=== PATIENT | female | born 1985 | race Caucasian/White ===

== ENCOUNTER 2020-02-24 16:01 | Inpatient (IN) | payer OTHER ==
[2020-02-24] VITALS (76 sets, daily range): BP systolic 140; BP diastolic 62; PULSE 84; TEMP 98.7; O2SAT 88–95
[~2020-02-24] VITALS: Ht 165.1 cm; Wt 91.4 kg
[~2020-02-24 16:01] MED LIST: ACIDOPHILUS PO; ASMANEX TW0.22 MG/A1 IH; BCP TD; CLARITIN 1010 MG/TAB PO; COLACE50 MG PO; CYMBALTA; ESTRACE2 MG PO; FLAGYL500 MG PO; INDERAL LA120 MG PO; LEXAPRO10 MG PO; LORTAB 5/500 501 TAB PO; MOTRIN 800800 MG/TAB PO; MULTI VITAMINS1 TAB PO; PERCOCET 325 MG1 TA2 PO; PRENATAL1 TA1 PO; PRILOTC PO; PROPRANOLOL HC120 M1 PO; SLOW FE45 MG PO; SYNTHROID0.112 MG/T PO; SYNTHROID0.137 MG PO; TENORMIN100 MG PO; TYLENOL 500MG500 MG PO; TYLENOL EXTRA500 M1 PO; Z-BEC1 TAB PO; ZOFRAN8 MG PO; ZOLOFT100 MG PO; ZYRTEC 10MG10 MG PO
[2020-02-24] MEDS ORDERED: LEXAPRO20 MG PO (17:07)
[2020-02-24] MEDS ORDERED: NATURAL MAGNES200 MG PO (17:08)
[2020-02-24] MEDS ORDERED: METHAVER 109 M1 EACH PO (17:08)
[2020-02-24 17:19] LABS: ALBUMIN 4.1 gm/dL (3.5-5.0); ALKALINE PHOSPHATASE 110 U/L (50-136); ANION GAP 18 mmol/L (7-16); AST,SGOT 166 U/L (15-37); BILIRUBIN,TOTAL 0.4 mg/dL (0.0-1.0); BLOOD UREA NITROGEN 19 mg/dL (7-17); CALCIUM 8.4 mg/dL (8.4-10.2); CHLORIDE 108 mmol/L (98-107); GLUCOSE 181 mg/dL (74-106); MAGNESIUM 1.7 mg/dL (1.6-2.3); POTASSIUM 3.7 mmol/L (3.4-5.0); SODIUM 140 mmol/L (137-145); TOTAL PROTEIN 7.2 gm/dL (6.4-8.2)
[2020-02-24 17:25] LABS: ALANINE AMINOTRANSFERASE 82 U/L (4-34)
[2020-02-24 17:30] LABS: CARBON DIOXIDE 13 mmol/L (22-30)
[2020-02-24 17:31] LABS: TROPONIN-I < 0.012 ng/mL (0.000-0.035)
[2020-02-24 18:37] LABS: ACETONE,SERUM NEGATIVE
[2020-02-24 18:38] LABS: SALICYLATE 1.4 mg/dL
[2020-02-24 18:53] LABS: ARTERIAL BLOOD GAS HCO3 13.8 meq/L (22-26); ARTERIAL BLOOD GAS PCO2 25.4 mmHg (35-45); ARTERIAL BLOOD GAS PO2 80.8 mmHg (80-100); ARTERIAL BLOOD GAS pH 7.35 (7.35-7.45)
[2020-02-24 18:54] LABS: ARTERIAL BLD GAS O2 SATURATION 95.8 % (92-100); ARTERIAL BLOOD GAS BASE EXCESS -10.1 (-2-2)
[2020-02-24] MEDS ORDERED: MAG-OX 400400 MG/TAB PO (19:59)
[2020-02-24] MEDS ORDERED: RIBOFLAVIN100 MG PO (20:00)
[2020-02-24] MEDS ORDERED: NEXIUM 20MG20 MG PO (20:01)
[2020-02-24] MEDS ORDERED: ALEVE 220MG220 MG PO (20:01)
[2020-02-24 20:45] LABS: PHOSPHOROUS 4.2 mg/dL (2.5-4.5)
[2020-02-24 23:04] LABS: ACETAMINOPHEN < 10 ug/mL (10-30); ALCOHOL(ethanol),MEDICAL < 10 mg/dL
[2020-02-25] VITALS (782 sets, daily range): BP systolic 119–135; BP diastolic 54–86; PULSE 66–86; TEMP 98.2–99; O2SAT 82–100
[2020-02-25 02:28] LABS: HIV 1/2 Antibodies Non-Reactive; HIV-1p24 Antigen Non-Reactive
[2020-02-25 02:50] LABS: ARTERIAL BLOOD GAS HCO3 19.3 meq/L (22-26); ARTERIAL BLOOD GAS PCO2 28.8 mmHg (35-45); ARTERIAL BLOOD GAS PO2 49.8 mmHg (80-100); ARTERIAL BLOOD GAS pH 7.44 (7.35-7.45)
[2020-02-25 02:51] LABS: ARTERIAL BLD GAS O2 SATURATION 85.6 % (92-100); ARTERIAL BLOOD GAS BASE EXCESS -3.6 (-2-2)
[2020-02-25 05:41] LABS: CALCIUM 8.4 mg/dL (8.4-10.2); CREATININE, serum 0.95 (0.52-1.25); POTASSIUM 4.4 mmol/L (3.4-5.0)
--- NOTE | 2020-02-25 05:56 | NUR ---
PLACED PATIENT ON AIRVO 50L 60% THEY WERE NOT TOLERATING HIGH FLOW NASAL CANNULA OF 12L.
--- NOTE | 2020-02-25 06:00 | NUR ---
PT arrived at 2044 on 02/23 via ER stretcher accompanied by ER nurse. PT stood and walked to unit bed. However, PT has difficulties standing and complained of some dizziness, gait was awkward and unsteady, some SOA noted. PT then attached to CRM monitor, vitals obtained. PT complained of nausea, phenegran then administered per provider order. Throughout the night, PT SpO2 sats continued to decline despite increased oxygen use. PT went from arriving on room air and is now on AirVo. RAJINDER Fernando notified whenever staff increased O2 liter flow along with notifying provider of elevated lactic acid, increased edema, lack of urine output. Orders received awknowledging these issues and RAJINDER Fernando to bedside to assess patient. POC reviewed with hospitalist and BUTCH provider. PT understanding of POC and encouraged to ask questions. PT O2 sats remain in the mid-90's.
[2020-02-25 09:01] LABS: ARTERIAL BLD GAS O2 SATURATION 94.7 % (92-100); ARTERIAL BLD GAS TCO2 CT 20.7; ARTERIAL BLOOD GAS BASE EXCESS -2.4 (-2-2); ARTERIAL BLOOD GAS HCO3 19.8 meq/L (22-26); ARTERIAL BLOOD GAS PCO2 26.7 mmHg (35-45); ARTERIAL BLOOD GAS PO2 65.9 mmHg (80-100); ARTERIAL BLOOD GAS pH 7.49 (7.35-7.45)
--- NOTE | 2020-02-25 09:31 | NUR ---
Initial visit; Patient in Isolation, Manager Of Data left message of God's blessings and prayer being said for Maritza.
[2020-02-25 10:03] LABS: BASO % 0.2 % (0.0-2.0); EOS % 0.1 % (0-4.0); GRAN # 7.9 (1.4-6.5); GRAN % 75.1 % (42.2-75.2); HEMOGLOBIN 10.5 g/dl (12.5-16.0); LYMPH # 1.5 (1.2-3.4); LYMPH % 14.1 % (20.0-51.0); MEAN CELL VOLUME 85 fl (80.0-100.0); MEAN CORPUSCULAR HEMOGLOBIN 28 pg (27.0-31.0); MEAN CORPUSCULAR HGB CONC 33 g/dl (33.0-37.0); MEAN PLATELET VOLUME 10.1 fl (7.4-10.4); MONO # 1.1 (0.1-0.6); MONO % 9.9 % (1.7-9.3); PLATELET COUNT 351 K/mm3 (130-400); RED BLOOD COUNT 3.76 M/mm3 (4.10-5.30); REDCELL DISTRIBUTION WIDTH-CV 13.6 % (11.5-14.5)
[2020-02-25 10:22] LABS: HEMATOCRIT 31.9 % (37.0-47.0)
[2020-02-25 11:37] LABS: ERYTHROCYTE SEDIMENTATION RATE 33 mm/hr (0-20)
--- NOTE | 2020-02-25 13:20 | NUR ---
The patient is Covid + and is in isolation. Ore Miner attended clinical rounds with the team by standing outside the room. The patient now has a PICC line and is to have an echocardiogram this day. The patient is currently on 50L of oxygen on Airvo. After rounds, SW contacted the patient via cell phone to complete initial intake. The patient lives in [place] with her , Romulo and their two children. The patient denies DME use and is independent. The patient's PCP is Dr. Hay and patient receives medications from [facility] in [place]. The patient does does not have advanced directives in the EMR but states they are complete and designate her and [id number]. GRIFFIN contacted the patient's , Romulo # [phone] to introduce oneself and to discuss DPOA-HC paperwork. Romulo to look for paperwork then send it to this SW. SW provided support.
[2020-02-26] VITALS (519 sets, daily range): BP systolic 103–124; BP diastolic 53–59; PULSE 88–105; TEMP 98.7–99.2; O2SAT 90–100
[2020-02-26 05:58] LABS: ARTERIAL BLD GAS O2 SATURATION 96.8 % (92-100); ARTERIAL BLD GAS TCO2 CT 23.9; ARTERIAL BLOOD GAS PCO2 31.7 mmHg (35-45); ARTERIAL BLOOD GAS pH 7.48 (7.35-7.45)
[2020-02-26 06:56] LABS: BASO % 0.2 % (0.0-2.0); GRAN # 10.2 (1.4-6.5); GRAN % 83.7 % (42.2-75.2); LYMPH # 0.9 (1.2-3.4); LYMPH % 7.1 % (20.0-51.0); MEAN CELL VOLUME 85 fl (80.0-100.0); MEAN CORPUSCULAR HGB CONC 34 g/dl (33.0-37.0); MEAN PLATELET VOLUME 10.3 fl (7.4-10.4); MONO % 8.3 % (1.7-9.3); RED BLOOD COUNT 3.43 M/mm3 (4.10-5.30); REDCELL DISTRIBUTION WIDTH-CV 13.7 % (11.5-14.5)
[2020-02-26 07:10] LABS: ALBUMIN 3.5 gm/dL (3.5-5.0); BILIRUBIN,TOTAL 0.4 mg/dL (0.0-1.0); CALCIUM 8.2 mg/dL (8.4-10.2); CREATININE, serum 0.78 (0.52-1.25); MAGNESIUM 2.1 mg/dL (1.6-2.3); PHOSPHOROUS 3.6 mg/dL (2.5-4.5); POTASSIUM 3.3 mmol/L (3.4-5.0); TOTAL PROTEIN 6.4 gm/dL (6.4-8.2)
[2020-02-26 07:11] LABS: HEMATOCRIT 29.3 % (37.0-47.0); HEMOGLOBIN 9.9 g/dl (12.5-16.0); MEAN CORPUSCULAR HEMOGLOBIN 29 pg (27.0-31.0); PLATELET COUNT 249 K/mm3 (130-400)
[2020-02-27] VITALS (393 sets, daily range): BP systolic 104–134; BP diastolic 48–72; PULSE 79–98; TEMP 97.9–98.6; O2SAT 89–100
[2020-02-27 06:52] LABS: BASO % 0.1 % (0.0-2.0); GRAN % 79.1 % (42.2-75.2); MEAN CELL VOLUME 87 fl (80.0-100.0); MEAN CORPUSCULAR HGB CONC 33 g/dl (33.0-37.0); MEAN PLATELET VOLUME 10.1 fl (7.4-10.4); MONO % 9.7 % (1.7-9.3); PLATELET COUNT 240 K/mm3 (130-400); RED BLOOD COUNT 3.27 M/mm3 (4.10-5.30)
[2020-02-27 06:54] LABS: HEMATOCRIT 28.4 % (37.0-47.0); HEMOGLOBIN 9.3 g/dl (12.5-16.0); MEAN CORPUSCULAR HEMOGLOBIN 28 pg (27.0-31.0)
[2020-02-27 07:04] LABS: ALBUMIN 3.6 gm/dL (3.5-5.0); BILIRUBIN,TOTAL 0.4 mg/dL (0.0-1.0); CALCIUM 8.5 mg/dL (8.4-10.2); CREATININE, serum 0.67 (0.52-1.25); MAGNESIUM 2.1 mg/dL (1.6-2.3); PHOSPHOROUS 2.9 mg/dL (2.5-4.5); POTASSIUM 3.8 mmol/L (3.4-5.0); TOTAL PROTEIN 6.5 gm/dL (6.4-8.2)
--- NOTE | 2020-02-27 13:05 | NUR ---
Report given to RIKKI Ramos.
--- NOTE | 2020-02-27 13:20 | NUR ---
PT able to stand up from icu bed and walk to wheelchair without incident with steady gait. PT transported from ICU to room 306 with assistance of 2 RNs without incident. PT able to stand from wheelchair and moved to medical bed independently. PT in bed with call light.
--- NOTE | 2020-02-27 18:34 | NUR ---
Pt was up to the shower after arrival to the floor. She reports SOB on exertion, continues on 3L O2 via NC. Denies any pain. Lungs clear but diminished. Heart has regular rate and rhythm. No edema present. PICC to RUE. No needs at this time. Call light within reach.
--- NOTE | 2020-02-27 20:30 | NUR ---
Shift assessment complete. Pt sitting up in bed watching tv. On 3L O2 NC at this time. Lungs sounds clear, heart rate and rhythm regular, A&Ox4. Denies SOA. Reports chest discomfort, increases with coughing and deep breaths. Dry cough noted. Merem administered through red port on right upper arm PICC. Unable to flush purple port. Brought pt IV morphine shortly after Merem administration and was unable to flush either port. Notified charge nurse Debby who also attempted to flush both lines and was unable. Notified supervisor feed house and STACEY Kauffman. PO [place] ordered and administered. RIKKI Porter attempted to flush both lines and was able to get 8 mls NS into each port with difficulty. Caps changed. Morphine administered. Will pass on to day shift.
[2020-02-28] VITALS: BP 128/52; PULSE 74; TEMP 97.9
[2020-02-28 04:00] VITALS: BP 118/40; PULSE 85; TEMP 98
--- NOTE | 2020-02-28 05:50 | NUR ---
Pt slept on and off through night. Occasional reports of chest pain, relieved by IV morphine. O2 at 2 L with sats of 96%. PICC line difficult to flush and draw back on. Works only with repositioning of pt's arm and head.
--- NOTE | 2020-02-28 08:00 | NUR ---
Lab contacted for peripheral stick d/t PICC not working, states they will send someone up for lab draw.
[2020-02-28 09:17] LABS: MEAN CELL VOLUME 86 fl (80.0-100.0); MEAN CORPUSCULAR HGB CONC 33 g/dl (33.0-37.0); MEAN PLATELET VOLUME 9.9 fl (7.4-10.4); PLATELET COUNT 309 K/mm3 (130-400); RED BLOOD COUNT 4.11 M/mm3 (4.10-5.30); REDCELL DISTRIBUTION WIDTH-CV 13.5 % (11.5-14.5)
[2020-02-28 09:21] LABS: HEMATOCRIT 35.5 % (37.0-47.0); HEMOGLOBIN 11.6 g/dl (12.5-16.0); MEAN CORPUSCULAR HEMOGLOBIN 28 pg (27.0-31.0)
[2020-02-28 09:36] VITALS: BP 134/60; PULSE 92; TEMP 97.7
[2020-02-28 09:36] LABS: BILIRUBIN,TOTAL 0.4 mg/dL (0.0-1.0); CREATININE, serum 0.61 (0.52-1.25); PHOSPHOROUS 2.8 mg/dL (2.5-4.5); POTASSIUM 3.5 mmol/L (3.4-5.0); TOTAL PROTEIN 7.3 gm/dL (6.4-8.2)
[2020-02-28] MEDS ORDERED: DOXYCYCLINE 10100 MG PO (09:49)
[2020-02-28] MEDS ORDERED: DECADRON6 MG PO (09:49)
[2020-02-28] MEDS ORDERED: PROAIR HFA0.09 MG/AC IH (09:49)
[2020-02-28] MEDS ORDERED: SYNTHROID 0.10.15 MG PO (09:49)
[2020-02-28] MEDS ORDERED: NORCO 325 MG-51 TAB PO (09:50)
--- NOTE | 2020-02-28 09:53 | NUR ---
Pt assessment complete. Pt sitting up in bed upon entry, she is A/O x4. Her breathing is even and unlabored on 2L O2 via NC. Pt reports some chest tighness and SOA despite being 99-100% on O2. RT notified and are going to do an exercise oximetry. She denies any N/V/D. PICC line sluggish, but gets blood return. POC discussed with patient who verbalizes understanding.
[2020-02-28 11:32] LABS: BAND 1 % (0-10); LYMPHOCYTE 21 % (20.0-51.0); NEUTROPHILS 72 % (42.0-75.2)
[2020-02-28 11:33] LABS: PLATELET ESTIMATE NORMAL (NORMAL)
[2020-02-28 12:09] VITALS: BP 128/70; PULSE 85; TEMP 98.2
--- NOTE | 2020-02-28 15:59 | NUR ---
Discharge paperwork reviewed with patient, all questions answered at this time. PICC line removed from RUE, pt wheeled out at this time.
== END 2020-02-28 16:00 | disposition home or self-care (01) | DRG 308 ==
LOC: COL.ER 16:01 → ICU 18:04 → MEDICAL 02-27 13:27
PROVIDERS: Emergency Medicine; Internal Medicine Pulmonary Disease; Nurse Practitioner Family; ADMIT Internal Medicine
PROC: 02HV33Z Insertion of Infusion Device into Superior Vena Cava, Percutaneous Approach (ICD-10-PCS; principal; 2020-02-25)
DX: I44.2 Atrioventricular block, complete (principal); J96.01 Acute respiratory failure with hypoxia; U07.1 COVID-19; J12.89 Other viral pneumonia; E87.2 Acidosis; K56.609 Unspecified intestinal obstruction, unspecified as to partial versus complete obstruction; E87.6 Hypokalemia; F32.9 Major depressive disorder, single episode, unspecified; F41.9 Anxiety disorder, unspecified; E03.9 Hypothyroidism, unspecified; K21.9 Gastro-esophageal reflux disease without esophagitis; R74.01 Elevation of levels of liver transaminase levels; G43.909 Migraine, unspecified, not intractable, without status migrainosus; R73.9 Hyperglycemia, unspecified; R07.89 Other chest pain; E66.9 Obesity, unspecified; J45.909 Unspecified asthma, uncomplicated; Z90.710 Acquired absence of both cervix and uterus; Z90.49 Acquired absence of other specified parts of digestive tract
CPT/HCPCS: 99223-AI; 99232-AI; 99233-AI; 99239; C1751; J1100; J1650; J1815; J1940; J2185; J2270; J2550; J7030; J7050; J7120; Q9967